=== PATIENT | male | born 1980 | race African-American/Black ===

== ENCOUNTER 2023-08-15 01:20 | Emergency (ER) | payer OTHER ==
[~2023-08-15] VITALS: Ht 175.3 cm; Wt 127.0 kg
[2023-08-15 01:23] VITALS: BP 152/98; PULSE 106; RESP 20; TEMP 97.4; O2SAT 95
[2023-08-15 01:50] VITALS: BP 130/89; PULSE 91; RESP 18; TEMP 97.8; O2SAT 97
[2023-08-15] MEDS: BACITRACIN OINT 500 UNITS/GM PKT TP ONE (01:59)
== END 2023-08-15 01:50 ==
LOC: MED 01:20
DX: Z02.89 Encounter for other administrative examinations (principal); Z88.0 Allergy status to penicillin; Z88.8 Allergy status to other drugs, medicaments and biological substances; V49.88XA Car occupant (driver) (passenger) injured in other specified transport accidents, initial encounter; Y93.89 Activity, other specified; Y92.89 Other specified places as the place of occurrence of the external cause; Y99.8 Other external cause status
CPT/HCPCS: 99283